=== PATIENT | female | born 1955 | race Caucasian/White ===

== ENCOUNTER 2019-04-19 16:45 | Emergency (ER) | payer OTHER, BC ==
[~2019-04-19] VITALS: Ht 165.1 cm; Wt 102.3 kg
[2019-04-19] MEDS ORDERED: VENLAFAXINE HCL75 M1 PO (17:01)
[2019-04-19] MEDS ORDERED: LISINOPRIL5 MG PO (17:03)
[2019-04-19] MEDS ORDERED: METFORMIN500 MG PO (17:03)
[2019-04-19] MEDS ORDERED: NORVASC5 M1 PO (17:03)
[2019-04-19] MEDS ORDERED: ATORVASTATIN CA10 MG PO (17:04)
[2019-04-19] MEDS ORDERED: FISH OIL1 CAP PO (17:04)
[2019-04-19 17:45] LABS: HEMATOCRIT 38.2 % (37.0-47.0); IMMATURE GRANULOCYTES 0.6 % (0.0-5.0); MEAN CELL VOLUME 89.9 fL CALC (80.0-100.0); MEAN CORPUSCULAR HGB 28.2 pG CALC (26.0-32.0); MEAN CORPUSCULAR HGB CONC 31.4 g/L CALC (32.0-36.0); NEUT# 5.24 thou/uL (2.00-7.15); RED BLOOD COUNT 4.25 mill/uL (4.20-5.60); RED CELL DISTRI WIDTH 12.6 % (11.5-15.5)
[2019-04-19 18:00] LABS: ALBUMIN 4.7 g/dL (3.2-5.0); ALKALINE PHOSPHATASE 68 u/l (38-126); ANION GAP 13 (6-22 (CALC)); BILIRUBIN, TOTAL 0.5 mg/dL (0.0-1.4); BUN 25 mg/dL (8-23); BUN/CREATININE RATIO 23 (12-20 (CALC)); CARBON DIOXIDE 27 mmol/l (22-30); CHLORIDE 105 mmol/l (95-108); CREATININE 1.1 mg/dL (0.5-1.0); GFR 50 ML/MIN (>=60 (CALC)); GFR FOR AFR.AMER. > 60 ML/MIN (>=60 (CALC)); LIPASE 89 u/l (23-300); POTASSIUM 4.4 mmol/l (3.5-5.1); SGOT/AST 37 u/l (9-36); SODIUM 141 mmol/l (137-146); TOTAL PROTEIN 7.7 g/dL (6.3-8.2)
[2019-04-19] MEDS ORDERED: MUPIROCIN21 TOP (18:53)
[2019-04-19 19:10] VITALS: BP 137/57
[2019-04-19 19:35] LABS: URINE BILIRUBIN - DIPSTICK NEGATIVE (NEGATIVE); URINE BLOOD DIPSTICK MODERATE (NEGATIVE); URINE COLOR YELLOW; URINE GLUCOSE - DIPSTICK NEGATIVE (NEGATIVE); URINE KETONE NEGATIVE (NEGATIVE); URINE LEUK ESTERASE NEGATIVE (NEGATIVE); URINE NITRITE - DIPSTICK NEGATIVE (Negative); URINE PH 5.5 (4.5-8.0); URINE PROTEIN - DIPSTICK NEGATIVE (NEG-TRACE); URINE UROBILINOGEN - DIPSTICK 0.2 E.U./dL (0.2)
[2019-04-19 19:45] LABS: URINE CALCIUM OXALATE CRYSTALS MODERATE lpf; URINE SQUAMOUS EPITHELIAL CELL FEW EPI/hpf (0-FEW); URINE WBC 0-2 WBC/hpf (0-5)
== END 2019-04-19 19:10 | disposition home or self-care (01) | DRG 605 ==
LOC: ED 16:45
PROVIDERS: Family Medicine
DX: S20.211A Contusion of right front wall of thorax, initial encounter (principal); S40.011A Contusion of right shoulder, initial encounter; V49.50XA Passenger injured in collision with unspecified motor vehicles in traffic accident, initial encounter; Y92.410 Unspecified street and highway as the place of occurrence of the external cause; I10 Essential (primary) hypertension
CPT/HCPCS: Q9967

== ENCOUNTER 2020-11-01 08:42 | Emergency (ER) | payer MEDICARE ==
[~2020-11-01] VITALS: Ht 165.1 cm; Wt 97.1 kg
[~2020-11-01 08:42] MED LIST: ATORVASTATIN CA10 MG PO; FISH OIL1 CAP PO; LISINOPRIL5 MG PO; METFORMIN500 MG PO; MUPIROCIN21 TOP; NORVASC5 M1 PO; VENLAFAXINE HCL75 M1 PO
[2020-11-01] MEDS ORDERED: LISINOPRIL10 MG PO (09:54)
[2020-11-01] MEDS ORDERED: METFORMIN HCL1000 MG PO (09:55)
[2020-11-01] MEDS ORDERED: TORADOL PO (09:56)
[2020-11-01 10:00] VITALS: BP 141/71
== END 2020-11-01 10:00 | disposition home or self-care (01) ==
LOC: ED 08:42
DX: M23.92 Unspecified internal derangement of left knee (principal); I10 Essential (primary) hypertension

== ENCOUNTER 2022-07-03 18:58 | Emergency (ER) | payer MEDICARE ==
[~2022-07-03] VITALS: Ht 165.1 cm; Wt 97.5 kg
[~2022-07-03 18:58] MED LIST changes: +LISINOPRIL10 MG PO; +METFORMIN HCL1000 MG PO; +TORADOL PO
[2022-07-03] MEDS ORDERED: KENALOG15 GM/TUBE EX (19:12)
[2022-07-03] MEDS ORDERED: VENLAFAXINE HYD75 MG (19:15)
[2022-07-03] MEDS ORDERED: VITAMIN D2000 UNI1 PO (19:16)
[2022-07-03] MEDS ORDERED: VENLAFAXINE HCL75 MG PO (19:16)
[2022-07-03 19:25] VITALS: BP 140/70
[2022-07-03 19:31] VITALS: BP 133/67
[2022-07-03 20:01] VITALS: BP 111/57
[2022-07-03] MEDS ORDERED: NAPROXEN500 MG PO (20:06)
[2022-07-03] MEDS ORDERED: CYCLOBENZAPRINE10 MG PO (20:06)
[2022-07-03 20:09] VITALS: BP 133/67
== END 2022-07-03 20:23 | disposition home or self-care (01) ==
LOC: ED 18:58
DX: S83.92XA Sprain of unspecified site of left knee, initial encounter (principal); M17.12 Unilateral primary osteoarthritis, left knee; I10 Essential (primary) hypertension; X50.0XXA Overexertion from strenuous movement or load, initial encounter; Y92.511 Restaurant or cafe as the place of occurrence of the external cause